=== PATIENT | female | born 1975 | race Caucasian/White ===

== ENCOUNTER → 2017-11-26 | Outpatient (CLI) | payer BC | LOC: RAD 16:56 | DX: M20.5X1 Other deformities of toe(s) (acquired), right foot (principal); M77.31 Calcaneal spur, right foot ==

== ENCOUNTER → 2019-01-23 | Outpatient (CLI) | payer BC ==
[2019-01-23 16:21] LABS: ALBUMIN 4.1 g/dL (3.5-5.0)
[2019-01-23 16:24] LABS: TOTAL PROTEIN 6.6 g/dL (6.4-8.3)
[2019-01-23 16:26] LABS: TOTAL BILIRUBIN 0.4 mg/dL (0.2-1.2)
[2019-01-23 16:30] LABS: DIRECT BILIRUBIN 0.1 mg/dL (0.0-0.5)
== END ==
LOC: LAB 15:41
PROVIDERS: Family Medicine
DX: G35 Multiple sclerosis (principal); L50.9 Urticaria, unspecified; L29.9 Pruritus, unspecified

== ENCOUNTER → 2020-02-11 | Outpatient (CLI) | payer BC | LOC: RAD 10:31 | DX: M79.89 Other specified soft tissue disorders (principal) ==

== ENCOUNTER → 2021-04-18 | Outpatient (CLI) | payer BC | LOC: RAD 14:20 | DX: M25.571 Pain in right ankle and joints of right foot (principal) ==

== ENCOUNTER → 2021-04-21 | Outpatient (CLI) | payer BC | LOC: RAD 19:55 | DX: S93.491A Sprain of other ligament of right ankle, initial encounter (principal); S93.411A Sprain of calcaneofibular ligament of right ankle, initial encounter; M19.071 Primary osteoarthritis, right ankle and foot ==